=== PATIENT | female | born 2000 | race American Indian/Alaskan Native ===

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

== ENCOUNTER 2020-03-18 14:01 | Emergency (ER) | payer SELFPAY | END 2020-03-18 16:42 | disposition left against medical advice (07) | LOC: ED 14:01 | DX: Z00.00 Encounter for general adult medical examination without abnormal findings (principal); Z53.21 Procedure and treatment not carried out due to patient leaving prior to being seen by health care provider ==

== ENCOUNTER 2020-12-26 02:36 | Emergency (ER) | payer SELFPAY ==
[2020-12-26 02:51] VITALS: BP 123/84
== END 2020-12-26 03:34 | disposition left against medical advice (07) ==
LOC: ED 02:36
DX: O20.9 Hemorrhage in early pregnancy, unspecified (principal); Z3A.00 Weeks of gestation of pregnancy not specified; Z53.21 Procedure and treatment not carried out due to patient leaving prior to being seen by health care provider